=== PATIENT | male | born 1980 | race Caucasian/White ===

== ENCOUNTER → 2017-11-07 16:07 | Outpatient (REF) | payer OTHER, SELFPAY ==
[2017-11-08 15:11] LABS: Amphetamine/Metha Screen,Urine Negative ng/mL (<1000); Barbiturates Screen,Urine Negative ng/mL (<200); Benzodiazepines Screen,Urine Negative ng/mL (200); Cannabinoid Screen,Urine Positive ng/mL (<50); Cocaine Screen,Urine Negative ng/g (<300); Methadone Screen,Urine Negative ng/mL (<300); Opiate Screen,Urine Positive ng/mL (<300); Phencyclidine Screen,Urine Negative ng/mL (<25)
== END ==
LOC: LAB 16:07
PROVIDERS: Visit Provider Nurse Practitioner Family
DX: Z79.899 Other long term (current) drug therapy (principal)
CPT/HCPCS: 80305

== ENCOUNTER → 2017-12-08 15:05 | Outpatient (REF) | payer OTHER, SELFPAY ==
[2017-12-08 20:17] LABS: Amphetamine/Metha Screen,Urine Negative ng/mL (<1000); Barbiturates Screen,Urine Negative ng/mL (<200); Benzodiazepines Screen,Urine Negative ng/mL (200); Cannabinoid Screen,Urine Positive ng/mL (<50); Cocaine Screen,Urine Positive ng/g (<300); Methadone Screen,Urine Negative ng/mL (<300); Opiate Screen,Urine Positive ng/mL (<300); Phencyclidine Screen,Urine Negative ng/mL (<25)
== END ==
LOC: LAB 15:05
PROVIDERS: Visit Provider Emergency Medicine
DX: Z79.899 Other long term (current) drug therapy (principal)
CPT/HCPCS: 80305

== ENCOUNTER → 2018-01-05 16:40 | Outpatient (REF) | payer OTHER, SELFPAY ==
[2018-01-05 18:53] LABS: Amphetamine/Metha Screen,Urine Negative ng/mL (<1000); Barbiturates Screen,Urine Negative ng/mL (<200); Benzodiazepines Screen,Urine Negative ng/mL (200); Cannabinoid Screen,Urine Negative ng/mL (<50); Cocaine Screen,Urine Positive ng/g (<300); Methadone Screen,Urine Negative ng/mL (<300); Opiate Screen,Urine Positive ng/mL (<300); Phencyclidine Screen,Urine Negative ng/mL (<25)
[2018-01-13 19:16] LABS: Benzoylecgonine (GC/MS) 3355 ng/mL (Cutoff=150); Cocaine + Metabolite Positive (.)
== END ==
LOC: LAB 16:40
PROVIDERS: Visit Provider Emergency Medicine
DX: Z79.899 Other long term (current) drug therapy (principal)
CPT/HCPCS: 80305; 80353

== ENCOUNTER → 2018-01-08 16:48 | Outpatient (CLI) | payer OTHER, SELFPAY | PROVIDERS: Visit Provider Physician Assistant | DX: Z79.899 Other long term (current) drug therapy (principal) ==

== ENCOUNTER → 2018-08-31 17:03 | Outpatient (CLI) | payer OTHER, SELFPAY ==
[2018-08-31 19:58] LABS: Amphetamine/Metha Screen,Urine Negative ng/mL (<1000); Barbiturates Screen,Urine Negative ng/mL (<200); Benzodiazepines Screen,Urine Negative ng/mL (<200); Cannabinoid Screen,Urine Positive ng/mL (<50); Cocaine Screen,Urine Negative ng/mL (<300); Methadone Screen,Urine Negative ng/mL (<300); Opiate Screen,Urine Negative ng/mL (<300); Phencyclidine Screen,Urine Negative ng/mL (<25)
== END ==
PROVIDERS: PCP Nurse Practitioner Family; Visit Provider Nurse Practitioner Family
DX: Z79.899 Other long term (current) drug therapy (principal)
CPT/HCPCS: 80305

== ENCOUNTER → 2018-10-03 18:54 | Outpatient (CLI) | payer OTHER, SELFPAY ==
[2018-10-03 21:48] LABS: Amphetamine/Metha Screen,Urine Negative ng/mL (<1000); Barbiturates Screen,Urine Negative ng/mL (<200); Benzodiazepines Screen,Urine Negative ng/mL (<200); Cannabinoid Screen,Urine Positive ng/mL (<50); Cocaine Screen,Urine Negative ng/mL (<300); Methadone Screen,Urine Negative ng/mL (<300); Opiate Screen,Urine Negative ng/mL (<300); Phencyclidine Screen,Urine Negative ng/mL (<25)
== END ==
PROVIDERS: Visit Provider Nurse Practitioner Family
DX: Z79.899 Other long term (current) drug therapy (principal)
CPT/HCPCS: 80305

== ENCOUNTER → 2018-12-10 14:10 | Outpatient (POV) | payer OTHER, SELFPAY ==
[2018-12-10 14:32] VITALS: BP 145/87; PULSE 70; RESP 18; O2SAT 99
--- NOTE | 2018-12-10 15:12 | HMH.PMCON ---
Assessment and Plan (1) Degenerative disc disease Current visit: Yes Status: Chronic Qualifiers: Spinal region: lumbar Qualified Code(s): M51.36 - Other intervertebral disc degeneration, lumbar region Category: Medical (2) Back pain Current visit: No Status: Chronic Qualifiers: Back pain location: low back pain Chronicity: chronic Back pain laterality: midline Sciatica presence: with sciatica Sciatica laterality: sciatica laterality unspecified Qualified Code(s): M54.40 - Lumbago with sciatica, unspecified side; G89.29 - Other chronic pain Category: Medical Code(s): M54.9 - Dorsalgia, unspecified - Assessment and plan all Dx Assessment and Plan for all problems:: We will plan at L4-L5 lumbar epidural steroid injection. The patient is not a narcotic candidate given his ORT and previous use of illegal substances along with his age. Patient is not on anticoagulation therapy we will follow-up with the patient after his injection. Dr. Maciel has reviewed this note and agrees with this plan of care. This note was dictated using voice recognition software and may contain errors or omissions HPI - Data of Consult Consult date: 12/10/18 Requesting Physician: Gricelda Baez APRN Primary Care Provider: Gianluca Fitzpatrick MD - Consult Narrative Reason for consult: Back pain, leg pain History of present illness: Mr. Gardner is a 38 year old male who presents today to discuss his back and leg pain. Patient has a MRI from 2017 which is fairly unremarkable. However he does have some spondylosis and a very minor first-degree spondylolisthesis at L5-S1. There is no abnormal disc protrusions. Patient states he went to 1 session of physical therapy and was not told to come back so he did not complete physical therapy. Patient states he is still trying to be active. Patient does have inappropriate drug screen showing both cocaine and marijuana in the last year. Patient states he is receiving [place] from his primary care physician however this is not corroborated by his CHRISTIANE. Patient Jesus does report 800 mg of gabapentin 4 times a day. CC: Gricelda Baez APRN [facility] History I have reviewed the patient's past medical history: Yes Medical History: Reports:: Anxiety, Gastroesophageal Reflux Disease(GERD), Hypertension Other Medical History: Reports: Arthritis Other Surgeries: Yes: No Previous Surgery, Other Amputation: No Fractures: Yes - *Social History Smoking Status: Current every day smoker Tobacco Type: cigarettes # Packs/Day (cigarettes): 1 Alcohol Intake: never Alcohol Intake Frequency:: a few times a month Substance Use Type: denies use Occupational Status: employed Housing: house Household Members: spouse, children Travel in the last 8 weeks: None - Psychiatric History Expresses thoughts of harming self/others: None Suicide Plan Description: No Plan Pschychiatric History:: Reports:: Anxiety *Family Hx:: Hypertension, Heart Attack, Stroke, Diabetes, Asthma Review of Systems - Review of Systems ROS General: no recent weight change, no fever, no sleep disturbances Respiratory: no cough, no shortness of air, no recurring pulmonary infections Cardiovascular/Peripheral Vascular: No chest pain, No palpitations, no edema, no shortness of breath. Gastrointestinal: no incontinence, normal bowel movements reported Genitourinary: no incontinence Musculoskeletal: Back pain, leg pain Psychiatric: normal mood/ affect Neurological: [denies weakness in extremities], [denies balance issues] Meds Home Medications Medication Instructions Recorded Confirmed Type cyclobenzaprine 10 mg tablet 10 mg PO HS #30 tab 10/03/18 11/12/18 Rx omeprazole magnesium 20 mg 20 mg PO DAILY #30 tab 10/03/18 11/12/18 Rx tablet,delayed release gabapentin 800 mg tablet 800 mg PO QID #120 tab 11/12/18 Rx Allergies Allergy/AdvReac Type Severity Reaction Status Date / Time Pen
--- NOTE | 2018-12-10 15:15 | P.CONS_ITS ---
Assessment and Plan (1) Degenerative disc disease Current visit: Yes Status: Chronic Qualifiers: Spinal region: lumbar Qualified Code(s): M51.36 - Other intervertebral disc degeneration, lumbar region Category: Medical (2) Back pain Current visit: No Status: Chronic Qualifiers: Back pain location: low back pain Chronicity: chronic Back pain laterality: midline Sciatica presence: with sciatica Sciatica laterality: sciatica laterality unspecified Qualified Code(s): M54.40 - Lumbago with sciatica, unspecified side; G89.29 - Other chronic pain Category: Medical Code(s): M54.9 - Dorsalgia, unspecified - Assessment and plan all Dx Assessment and Plan for all problems:: We will plan at L4-L5 lumbar epidural steroid injection. The patient is not a narcotic candidate given his ORT and previous use of illegal substances along with his age. Patient is not on anticoagulation therapy we will follow-up with the patient after his injection. Dr. Maciel has reviewed this note and agrees with this plan of care. This note was dictated using voice recognition software and may contain errors or omissions HPI - Data of Consult Consult date: 12/10/18 Requesting Physician: Gricelda Baez APRN Primary Care Provider: Gianluca Fitzpatrick MD - Consult Narrative Reason for consult: Back pain, leg pain History of present illness: Mr. Gardner is a 38 year old male who presents today to discuss his back and leg pain. Patient has a MRI from 2017 which is fairly unremarkable. However he does have some spondylosis and a very minor first-degree spondylolisthesis at L5-S1. There is no abnormal disc protrusions. Patient states he went to 1 session of physical therapy and was not told to come back so he did not complete physical therapy. Patient states he is still trying to be active. Patient does have inappropriate drug screen showing both cocaine and marijuana in the last year. Patient states he is receiving [place] from his primary care physician however this is not corroborated by his CHRISTIANE. Patient Jesus does report 800 mg of gabapentin 4 times a day. CC: Gricelda Baez APRN [facility] History I have reviewed the patient's past medical history: Yes Medical History: Reports:: Anxiety, Gastroesophageal Reflux Disease(GERD), H ypertension Other Medical History: Reports: Arthritis Other Surgeries: Yes: No Previous Surgery, Other Amputation: No Fractures: Yes - *Social History Smoking Status: Current every day smoker Tobacco Type: cigarettes # Packs/Day (cigarettes): 1 Alcohol Intake: never Alcohol Intake Frequency:: a few times a month Substance Use Type: denies use Occupational Status: employed Housing: house Household Members: spouse, children Travel in the last 8 weeks: None - Psychiatric History Expresses thoughts of harming self/others: None Suicide Plan Description: No Plan Pschychiatric History:: Reports:: Anxiety *Family Hx:: Hypertension, Heart Attack, Stroke, Diabetes, Asthma Review of Systems - Review of Systems ROS General: no recent weight change, no fever, no sleep disturbances Respiratory: no cough, no shortness of air, no recurring pulmonary infections Cardiovascular/Peripheral Vascular: No chest pain, No palpitations, no edema, no shortness of breath. Gastrointestinal: no incontinence, normal bowel movements reported Genitourinary: no incontinence Musculoskeletal: Back pain, leg pain Psychiatric: normal mood/ affect Neurological: [denies weakness in extremities], [denies balance i
== END ==
PROVIDERS: PCP Emergency Medicine; Visit Provider Clinical Nurse Specialist Family Health
DX: M51.36 Other intervertebral disc degeneration, lumbar region (principal); M54.40 Lumbago with sciatica, unspecified side; G89.29 Other chronic pain
CPT/HCPCS: 99202

== ENCOUNTER → 2019-06-28 13:39 | Outpatient (CLI) | payer OTHER, SELFPAY ==
[2019-06-28 16:03] LABS: Amphetamine/Metha Screen,Urine Negative ng/mL (<1000); Barbiturates Screen,Urine Negative ng/mL (<200); Benzodiazepines Screen,Urine Negative ng/mL (<200); Cannabinoid Screen,Urine Positive ng/mL (<50); Cocaine Screen,Urine Negative ng/mL (<300); Methadone Screen,Urine Negative ng/mL (<300); Opiate Screen,Urine Negative ng/mL (<300); Phencyclidine Screen,Urine Negative ng/mL (<25)
== END ==
PROVIDERS: Visit Provider Nurse Practitioner Family
DX: N23 Unspecified renal colic (principal); Z79.899 Other long term (current) drug therapy
CPT/HCPCS: 80305; 87086

== ENCOUNTER → 2020-01-28 16:51 | Outpatient (CLI) | payer OTHER, SELFPAY | PROVIDERS: Visit Provider Nurse Practitioner Family | DX: M54.9 Dorsalgia, unspecified (principal) | CPT/HCPCS: 87086 ==

== ENCOUNTER 2020-04-30 13:06 | Emergency (ER) | payer OTHER, SELFPAY ==
[2020-04-30] VITALS (9 sets, daily range): BP systolic 120–167; BP diastolic 59–97; PULSE 44–80; RESP 18–20; TEMP 36.8–37.2; O2SAT 94–100; BMI 33.0; BMI 29.8
--- NOTE | 2020-04-30 13:01 | ECG_ITS ---
APPROVED REPORT Exam: Resting ECG HR:44 bpm ECG Measurements Heart Rate 44 AXES NH 172 P 61 QRSd 100 QRS 117 QT 442 T 65 QTc 377 <Conclusion> Marked sinus bradycardia Left posterior fascicular block Abnormal ECG Electronically signed by : Kaden Duong, 05/04/2020 12:05:25
--- NOTE | 2020-04-30 13:09 | HMH.EDGENADL ---
ED Disposition Clinical Impression: Atypical chest pain Abdominal pain Qualifiers: Abdominal location: periumbilical Qualified Code(s): R10.33 - Periumbilical pain Vomiting Qualifiers: Vomiting type: unspecified Vomiting Intractability: non-intractable Nausea presence: with nausea Qualified Code(s): R11.2 - Nausea with vomiting, unspecified Disposition: Home, Self-Care Condition on Discharge: Good Instructions: DI for Abdominal Pain-Adult, DI for Atypical Chest Pain, DI for Vomiting -- Adult Additional Instructions: Zofran as needed for vomiting. Continue omeprazole. Follow-up with your primary care provider. Additional instructions for ABDOMINAL PAIN: See your physician as soon as possible for further evaluation. Return immediately if worsening abdominal pain, vomiting, shortness of breath, fever, vomiting of blood or abdominal distention. Additional instructions for CHEST PAIN: See your physician as soon as possible for further evaluation. Return immediately if worsening chest pain, vomiting, shortness of breath, fever, coughing of blood. Prescriptions: Ondansetron [Zofran 4mg ODT] 4 mg PO TIDP PRN #[id number] tab.rapdis PRN Reason: Nausea And Vomiting Transmission Status: Received by [facility] Referrals: Provider,Referral, [Primary Care Provider] - - Critical Care Critical Care Time: No Attestation: On , the high probability of a clinically significant, sudden or life threatening deterioration of the following system(s) required my full and direct attention, intervention and personal management. The time I documented below is in addition to time spent performing reported procedures but includes the following listed in this critical care notation. Medical Decision Making - Medical Records Medical records reviewed: Yes: I reviewed the patient's medical records. - [place] Inquiry Pt receiving controlled substance: No Vital Signs: 04/30/20 13:07 04/30/20 14:07 04/30/20 14:30 Temperature 99.0 F Temperature Source Oral Pulse Rate Pulse Rate [Radial] 49 L 46 L 80 Respiratory Rate 18 19 18 Blood Pressure Blood Pressure [Right Arm] 149/84 H 120/74 144/59 H Blood Pressure Mean [Right Arm] 105 89 87 Blood Pressure Source [Right Arm] Automatic Cuff Automatic Cuff Automatic Cuff Blood Pressure Position [Right Arm] Sitting Sitting Supine 02 Sat by Pulse Oximetry 99 99 98 Oxygen Delivery Method Room Air Room Air Room Air 04/30/20 15:00 04/30/20 15:30 04/30/20 16:00 Temperature Temperature Source Pulse Rate Pulse Rate [Radial] 44 L 44 L 46 L Respiratory Rate 18 20 18 Blood Pressure Blood Pressure [Right Arm] 129/83 165/91 H 159/85 H Blood Pressure Mean [Right Arm] 98 115 109 Blood Pressure Source [Right Arm] Automatic Cuff Automatic Cuff Automatic Cuff Blood Pressure Position [Right Arm] Supine Supine Supine 02 Sat by Pulse Oximetry 99 99 98 Oxygen Delivery Method Room Air Room Air Room Air 04/30/20 16:30 04/30/20 17:00 04/30/20 17:35 Temperature 98.2 F Temperature Source Pulse Rate 80 Pulse Rate [Radial] 45 L 47 L Respiratory Rate 20 18 20 Blood Pressure 123/85 Blood Pressure [Right Arm] 167/88 H 147/83 H Blood Pressure Mean [Right Arm] 114 104 Blood Pressure Source [Right Arm] Automatic Cuff Automatic Cuff Blood Pressure Position [Right Arm] Supine Supine 02 Sat by Pulse Oximetry 100 94 L Oxygen Delivery Method Room Air - Lab Data Lab results reviewed: Yes: I reviewed the patient's lab results. Lab Results 04/30/20 13:24: WBC 11.7 H, RBC 5.31, Hgb 16.9, Hct 49.3, MCV 93.0, MCH 31.8 H, MCHC 34.1, RDW 14.2, Plt Count 168, MPV 7.9, Neut % (Auto) 77.3, Lymph % (Auto) 17.7, [place] % (Auto) 4.1, Eos % (Auto) 0.4, Baso % (Auto) 0.5, Neut # (Auto) 9.1 H, Lymph # (Auto) 2.1, [place] # (Auto) 0.5, Eos # (Auto) 0.0, Baso # (Auto) 0.1 04/30/20 13:24: Sodium 135 L, Potassium 3.6, Chloride 96 L, Carbon Dioxide 30, Anion Gap 12.6,
--- NOTE | 2020-04-30 13:14 | XR_ITS ---
PROCEDURE: XR CHEST PORTABLE CLINICAL HISTORY: CP COMPARISON: No exams were available for comparison FINDINGS: The cardiomediastinal silhouette and pulmonary vascularity are within normal limits. The lungs are clear without infiltrates, suspicious nodules, or pleural effusions. No acute bony abnormalities. IMPRESSION: No acute findings. Dictated by: Zaheer Gasca 04/30/2020 13:54 Electronically signed by Zaheer Gasca in [place] 04/30/2020 13:54
[2020-04-30 13:33] LABS: Basophils # 0.1 K/mm3 (0-0.2); Basophils % 0.5 % (0.1-2.0); Eosinophils % 0.4 % (0.1-12.0); Hematocrit 49.3 % (42.0-52.0); Hemoglobin 16.9 g/dL (14.1-18.0); Lymphocytes # 2.1 K/mm3 (0.7-4.5); Lymphocytes % 17.7 % (10-50); Mean Corpuscular HGB Conc 34.1 g/dL (31.8-35.4); Mean Corpuscular Hemoglobin 31.8 pg (27.0-31.2); Mean Platelet Volume 7.9 fl (7.4-10.4); Monocytes # 0.5 K/mm3 (0.1-1.0); Monocytes % 4.1 % (1.7-9.3); Neutrophils # 9.1 K/mm3 (1.8-7.8); Neutrophils % 77.3 % (37.0-80.0); Platelet Count 168 K/mm3 (142-424); Red Blood Count 5.31 M/mm3 (4.60-6.20); Red Cell Distribution Width 14.2 % (11.5-17.5); White Blood Count 11.7 K/mm3 (4.8-10.8)
--- NOTE | 2020-04-30 13:38 | CT_ITS ---
PROCEDURE: CT ABDOMEN PELVIS W CON CLINICAL INDICATION: abd pain COMPARISON: CT ABDOMEN PELVIS W CON from 01/26/2020 TECHNIQUE: IV Contrast: 75ML OPTIRAY 350 Oral Contrast None Axial images obtained with sagittal and coronal reformats. All CT scans at the facility use one or more dose reduction, viz: automated exposure control, ma/kV adjustment per patient size (including targeted exams where dose is matched to indication, i.e. head), or iterative reconstruction technique. FINDINGS: CT scan of the abdomen with contrast Lung bases are clear. The enhanced liver, gallbladder, kidneys, adrenal glands, spleen, and pancreas unremarkable. There is a small hiatal hernia. Aorta, small large bowel, appendix, soft tissues and bony structures are unremarkable. CT scan of the pelvis with contrast Prostate, seminal vesicles, and soft tissues are unremarkable. Grade 1 L5-S1 spondylolysis spondylolisthesis is noted. IMPRESSION: No mass lesions Dictated by: Zaheer Gasca 04/30/2020 14:13 Electronically signed by Zaheer Gasca in [facility] 04/30/2020 14:13
[2020-04-30 13:40] LABS: Chloride 96 mmol/L (98-107); Potassium 3.6 mmoL/L (3.5-5.1); Sodium 135 mmol/L (136-145)
[2020-04-30 13:42] LABS: Alanine Aminotransferase 73 U/L (12-78); Aspartate Amino Transferase 64 U/L (17-59); Blood Urea Nitrogen 9 mg/dl (9-20); Creatinine Clearance Estimated 175 mL/min (50-200); Estimated Glomerular Filt Rate 108 ml/min (>60); GFR (African American) 130 ML/MIN (>60)
[2020-04-30 13:43] LABS: Albumin Level 4.4 g/dl (3.5-5.0); Albumin/Globulin Ratio 1.4 (1.1-1.8); Alkaline Phosphatase 97 U/L (38-126); Anion Gap 12.6 mEq/L (5-15); Bilirubin,Total 0.9 mg/dl (0.2-1.3); Calcium 9.1 mg/dl (8.4-10.2); Carbon Dioxide 30 mmol/L (22.0-30.0); Ethyl Alcohol < 10 mg/dl (0-10); Globulin 3.2 g/dL (1.3-3.2); Glucose 156 mg/dl (74-100); Total Protein,Serum 7.6 g/dl (6.3-8.2)
[2020-04-30 13:50] LABS: Amylase 61 U/L (30-110); Lipase 61 U/L (23-300)
[2020-04-30 13:55] LABS: Troponin I 0.02 ng/ml (0.00-0.034)
[2020-04-30 13:57] LABS: Microscopic, Urine URINE MICROSCOPIC (MICROSCOPIC)
[2020-04-30 14:01] LABS: Appearance,Urine CLEAR (Clear); Blood, Urine Negative (Negative); Color,Urine YELLOW (Yellow); Glucose,Urine (UA) Negative (Negative); Ketones,Urine Negative (Negative); Leukocyte Esterase,Urine Negative (Negative); Nitrate,Urine Negative (Negative); Protein,Urine TRACE (Negative); Specific Gravity, Urine 1.015 (1.005-1.030)
--- NOTE | 2020-04-30 14:08 | PC.NURSE ---
PT GONE TO CT
[2020-04-30 14:20] LABS: Bacteria,Urine Trace /lpf; Squamous Epithelial Cell,Urine TNTC #/hpf (0-5)
[2020-04-30 14:21] LABS: Bilirubin,Urine Negative (Negative)
[2020-04-30 14:30] LABS: Amphetamine/Metha Screen,Urine Negative ng/ml (<1000); Barbiturates Screen,Urine Negative ng/ml (<200)
[2020-04-30 14:31] LABS: Benzodiazepines Screen,Urine Negative ng/ml (<200)
[2020-04-30 14:32] LABS: Cannabinoid Screen,Urine Positive ng/ml (<50); Cocaine Screen,Urine Negative ng/ml (<300)
[2020-04-30 14:33] LABS: Methadone Screen,Urine Negative ng/ml (<300)
[2020-04-30 14:34] LABS: Opiate Screen,Urine Negative ng/ml (<300); Phencyclidine Screen,Urine Negative ng/ml (<25)
--- NOTE | 2020-04-30 15:24 | US_ITS ---
PROCEDURE: US GALLBLADDER CLINICAL INDICATION: abdo pain, vomiting COMPARISON: No exams were available for comparison FINDINGS: Pancreas: Unremarkable/Not well seen Liver: Unremarkable. There is appropriate direction of portal blood flow. Right kidney: Unremarkable appearing. No hydronephrosis. 11.3 centimeters x 5.3 centimeters x 8.6 centimeters Gallbladder: No stones are evident. Sludge is present.. Common bile duct measures 5.1 millimeters. Gallbladder wall measures 3.1 millimeters. IMPRESSION: Gallbladder sludge Dictated by: Zaheer Gasca 04/30/2020 16:13 Electronically signed by Zaheer Gasca in [facility] 04/30/2020 16:13
--- NOTE | 2020-04-30 15:37 | PC.NURSE ---
to u/s at this time
--- NOTE | 2020-04-30 16:24 | PC.NURSE ---
LAB HERE DRAWING 2ND TROP
[2020-04-30 17:02] LABS: Troponin I 0.02 ng/ml (0.00-0.034)
== END 2020-04-30 17:36 | disposition home or self-care (01) ==
PROVIDERS: Emergency Provider Emergency Medicine
DX: R07.89 Other chest pain (principal); R10.33 Periumbilical pain; K21.9 Gastro-esophageal reflux disease without esophagitis; I10 Essential (primary) hypertension; F41.9 Anxiety disorder, unspecified; R73.9 Hyperglycemia, unspecified; F17.210 Nicotine dependence, cigarettes, uncomplicated; Z88.0 Allergy status to penicillin; Z79.899 Other long term (current) drug therapy
CPT/HCPCS: 36415; 71045; 74177; 76705; 80053; 80305; 81001; 82150; 83690; 84484; 85025; 93005; 96365; 96375; 99284; J2405; Q9967

== ENCOUNTER → 2021-06-28 20:13 | Outpatient (CLI) | payer OTHER, SELFPAY | PROVIDERS: Visit Provider Nurse Practitioner Family | DX: Z20.822 Contact with and (suspected) exposure to COVID-19 (principal) | CPT/HCPCS: U0003 ==

== ENCOUNTER 2021-07-15 13:03 | Emergency (ER) | payer OTHER, SELFPAY ==
--- NOTE | 2021-07-15 13:14 | CT_ITS ---
PROCEDURE: CT HEAD/BRAIN WO CON CLINICAL INDICATION: altered mental status COMPARISON: No exams were available for comparison TECHNIQUE: Axial images obtained. All CT scans at the facility use one or more dose reduction, viz: automated exposure control, ma/kV adjustment per patient size (including targeted exams where dose is matched to indication, i.e. head), or iterative reconstruction technique. FINDINGS: No midline shift, mass effect, intracranial hemorrhage, hydrocephalus, or extra-axial fluid collection is evident. Prominent cisterna magna is present as a normal variant. The calvarium has an unremarkable appearance. No mastoid effusion. There is mild mucosal thickening of the right maxillary sinus IMPRESSION: No acute intracranial finding Dictated by: Francisco Lowe MD 07/15/2021 13:53 Francisco Lowe MD in [facility] 07/15/2021 13:53
--- NOTE | 2021-07-15 13:14 | XR_ITS ---
PROCEDURE: XR CHEST PORTABLE CLINICAL HISTORY: mental status change COMPARISON: CR XR CHEST PORTABLE from 04/30/2020 FINDINGS: The cardiomediastinal silhouette and pulmonary vascularity are within normal limits. The lungs are clear without infiltrates, suspicious nodules, or pleural effusions. No acute bony abnormalities. IMPRESSION: No acute findings. Dictated by: Francisco Lowe MD 07/15/2021 14:09 Francisco Lowe MD in [facility] 07/15/2021 14:09
[2021-07-15 13:20] VITALS: BP 119/85; PULSE 84; RESP 16; TEMP 36.8; O2SAT 98; BMI 28.3
[2021-07-15 14:15] LABS: Basophils # 0.1 K/mm3 (0-0.2); Basophils % 1.3 % (0.1-2.0); Coronavirus 19, PCR Not Detected (NotDetected); Eosinophils # 0.2 K/mm3 (0.0-0.4); Eosinophils % 2.6 % (0.1-12.0); Hematocrit 45.8 % (42.0-52.0); Hemoglobin 15.2 g/dL (14.1-18.0); Influenza A, PCR Not Detected (NotDetected); Influenza B, PCR Not Detected (NotDetected); Lymphocytes # 1.9 K/mm3 (0.7-4.5); Lymphocytes % 24.6 % (10-50); Mean Corpuscular HGB Conc 33.1 g/dL (31.8-35.4); Mean Corpuscular Hemoglobin 31.2 pg (27.0-31.2); Mean Corpuscular Volume 94.3 fl (80-94); Mean Platelet Volume 8.2 fl (7.4-10.4); Monocytes # 0.4 K/mm3 (0.1-1.0); Monocytes % 4.7 % (1.7-9.3); Neutrophils # 5.2 K/mm3 (1.8-7.8); Neutrophils % 66.8 % (37.0-80.0); Platelet Count 140 K/mm3 (142-424); Red Blood Count 4.86 M/mm3 (4.60-6.20); Red Cell Distribution Width 14.2 % (11.5-17.5); White Blood Count 7.8 K/mm3 (4.8-10.8)
[2021-07-15 14:24] LABS: Alanine Aminotransferase 73 U/L (12-78); Albumin/Globulin Ratio 1.5 (1.1-1.8); Alkaline Phosphatase 95 U/L (38-126); Anion Gap 11.2 mEq/L (5-15); Aspartate Amino Transferase 75 U/L (17-59); Bilirubin,Total 0.4 mg/dl (0.2-1.3); Blood Urea Nitrogen 8 mg/dl (9-20); Calcium 8.8 mg/dl (8.4-10.2); Carbon Dioxide 30 mmol/L (22.0-30.0); Chloride 102 mmol/L (98-107); Creatinine Clearance Estimated 204 mL/min (50-200); Estimated Glomerular Filt Rate 125 ml/min (>60); GFR (African American) 151 ML/MIN (>60); Globulin 2.6 g/dL (1.3-3.2); Glucose 102 mg/dl (74-100); Potassium 4.2 mmoL/L (3.5-5.1); Sodium 139 mmol/L (136-145); Total Protein,Serum 6.6 g/dl (6.3-8.2)
[2021-07-15 14:25] LABS: Acetaminophen < 10 ug/ml (10-30); Ethyl Alcohol < 10 mg/dl (0-10); Salicylate < 1.0 mg/dL (2.0-20.0)
--- NOTE | 2021-07-15 14:37 | HMH.EDGENADL ---
ED Disposition Clinical Impression: Grief reaction, Hallucinations, Marijuana use Disposition: Home, Self-Care Condition on Discharge: Fair Instructions: DI for Anxiety -- Adult, Coping with Grief Additional Instructions: You have been evaluated for hallucinations, grief reaction. Please follow-up with your primary care doctor as soon as available. Return to the emergency department at once for any new or worsening symptoms. Return to the emergency department at once if you have any thoughts of hurting yourself or anyone else Referrals: Gianluca Fitzpatrick MD [Primary Care Provider] - Time of Disposition: 16:08 - Critical Care Critical Care Time: No Attestation: On 07/15/21, the high probability of a clinically significant, sudden or life threatening deterioration of the following system(s) required my full and direct attention, intervention and personal management. The time I documented below is in addition to time spent performing reported procedures but includes the following listed in this critical care notation. Medical Decision Making - Medical Records Medical records reviewed: Yes: I reviewed the patient's medical records. - [place] Inquiry Pt receiving controlled substance: No Vital Signs: 07/15/21 13:20 Temperature 98.2 F Temperature Source Oral Pulse Rate [Radial] 84 Respiratory Rate 16 Blood Pressure [Right Arm] 119/85 Blood Pressure Mean [Right Arm] 96 Blood Pressure Position [Right Arm] Sitting 02 Sat by Pulse Oximetry 98 Oxygen Delivery Method Room Air - Lab Data Lab Results 07/15/21 13:58: WBC 7.8, RBC 4.86, Hgb 15.2, Hct 45.8, MCV 94.3 H, MCH 31.2, MCHC 33.1, RDW 14.2, Plt Count 140 L, MPV 8.2, Neut % (Auto) 66.8, Lymph % (Auto) 24.6, [place] % (Auto) 4.7, Eos % (Auto) 2.6, Baso % (Auto) 1.3, Neut # (Auto) 5.2, Lymph # (Auto) 1.9, [place] # (Auto) 0.4, Eos # (Auto) 0.2, Baso # (Auto) 0.1 07/15/21 13:58: Sodium 139, Potassium 4.2, Chloride 102, Carbon Dioxide 30, Anion Gap 11.2, BUN 8 L, Creatinine 0.70, Estimated Creat Clear 204, Estimated GFR 125, Est GFR ( Amer) 151, Glucose 102 H, Calcium 8.8, Total Bilirubin 0.4, AST 75 H, ALT 73, Alkaline Phosphatase 95, Total Protein 6.6, Albumin 4.0, Globulin 2.6, Albumin/Globulin Ratio 1.5, Salicylates < 1.0 L, Acetaminophen < 10 L 07/15/21 13:58: Plasma/Serum Alcohol < 10 07/15/21 13:58: SARS-CoV-2 (PCR) Not detected, Influenza A Untype (PCR) Not detected, Influenza Type B (PCR) Not detected 07/15/21 14:25: Urine Opiates Screen Negative, Urine Methadone Screen Negative, Ur Barbituates Screen Negative, Ur Phencyclidine Scrn Negative, Ur Amphetamines Screen Negative, U Benzodiazepines Scrn Negative, Urine Cocaine Screen Negative, U Marijuana (THC) Screen Positive H Result diagrams: 07/15/21 13:58 07/15/21 13:58 Orders (Tests/Meds): ORDERS Category Date Time Status ECG Request by /Karin Stat Y 07/15/21 13:14 Ordered Medical Decision Narrative: In summary this is a 40-year-old male presenting to the emergency department with behavior changes, hallucinations. Patient clinically stable on arrival. Vital signs within normal limits, afebrile, no hypertension. Differential diagnoses are broad including grief reaction, intracranial mass, psychosis. Will obtain CBC, CMP, aspirin level, salicylate level, alcohol level, drug screen, chest x-ray, EKG, noncontrast head CT. Laboratory results are reassuring. No abnormalities of glucose or electrolytes. Salicylate level negative. Tylenol level negative. Noncontrast head CT shows no intracranial mass or bleed. On reassessment, patient says he is feeling much better. He does have odd hallucinations that are very concerning. However, he denies any thoughts of hurting himself or anyone else. He has not had outbursts or other concerning behavior. Simply odd behavior and speech. He and his would like to follow-up with his primary care doctor, Dr. Fitzpatrick. And strict return precautions. Gene
[2021-07-15 14:52] LABS: Barbiturates Screen,Urine Negative ng/ml (<200); Benzodiazepines Screen,Urine Negative ng/ml (<200)
[2021-07-15 14:53] LABS: Amphetamine/Metha Screen,Urine Negative ng/ml (<1000)
[2021-07-15 14:54] LABS: Cannabinoid Screen,Urine Positive ng/ml (<50); Cocaine Screen,Urine Negative ng/ml (<300)
[2021-07-15 14:55] LABS: Methadone Screen,Urine Negative ng/ml (<300)
[2021-07-15 14:56] LABS: Opiate Screen,Urine Negative ng/ml (<300); Phencyclidine Screen,Urine Negative ng/ml (<25)
[2021-07-15 16:12] VITALS: BP 143/74; PULSE 87; RESP 16; TEMP 36.6; O2SAT 97
== END 2021-07-15 16:14 | disposition home or self-care (01) ==
PROVIDERS: Emergency Provider Emergency Medicine; PCP Emergency Medicine
DX: F43.21 Adjustment disorder with depressed mood (principal); R44.3 Hallucinations, unspecified; F12.90 Cannabis use, unspecified, uncomplicated; K21.9 Gastro-esophageal reflux disease without esophagitis; I10 Essential (primary) hypertension; F17.210 Nicotine dependence, cigarettes, uncomplicated; Z88.0 Allergy status to penicillin
CPT/HCPCS: 70450; 71045; 80053; 80305; 80329; 85025; 99283; U0003

== ENCOUNTER → 2021-07-21 14:27 | Outpatient (CLI) | payer OTHER, SELFPAY ==
[2021-07-21 14:56] LABS: Chloride 101 mmol/L (98-107); Potassium 4.3 mmoL/L (3.5-5.1); Sodium 139 mmol/L (136-145)
[2021-07-21 14:59] LABS: Alanine Aminotransferase 71 U/L (12-78); Albumin/Globulin Ratio 1.5 (1.1-1.8); Alkaline Phosphatase 119 U/L (38-126); Anion Gap 13.3 mEq/L (5-15); Aspartate Amino Transferase 77 U/L (17-59); Bilirubin,Total 0.3 mg/dl (0.2-1.3); Blood Urea Nitrogen 6 mg/dl (9-20); Carbon Dioxide 29 mmol/L (22.0-30.0); Estimated Glomerular Filt Rate 125 ml/min (>60); GFR (African American) 151 ML/MIN (>60); Globulin 2.7 g/dL (1.3-3.2); Glucose 126 mg/dl (74-100); Total Protein,Serum 6.7 g/dl (6.3-8.2)
[2021-07-21 15:29] LABS: Basophils # 0.1 K/mm3 (0-0.2); Basophils % 0.5 % (0.1-2.0); Eosinophils # 0.2 K/mm3 (0.0-0.4); Eosinophils % 1.8 % (0.1-12.0); Hematocrit 48.3 % (42.0-52.0); Hemoglobin 15.3 g/dL (14.1-18.0); Lymphocytes # 1.8 K/mm3 (0.7-4.5); Lymphocytes % 19.1 % (10-50); Mean Corpuscular HGB Conc 31.6 g/dL (31.8-35.4); Mean Corpuscular Hemoglobin 30.1 pg (27.0-31.2); Mean Corpuscular Volume 95.1 fl (80-94); Mean Platelet Volume 9.6 fl (7.4-10.4); Monocytes # 0.5 K/mm3 (0.1-1.0); Monocytes % 4.8 % (1.7-9.3); Neutrophils % 73.7 % (37.0-80.0); Platelet Count 162 K/mm3 (142-424); Red Blood Count 5.07 M/mm3 (4.60-6.20); Red Cell Distribution Width 13.8 % (11.5-17.5); White Blood Count 9.5 K/mm3 (4.8-10.8)
[2021-07-21 15:46] LABS: Amphetamine/Metha Screen,Urine Negative ng/ml (<1000); Barbiturates Screen,Urine Negative ng/ml (<200)
[2021-07-21 15:47] LABS: Benzodiazepines Screen,Urine Negative ng/ml (<200)
[2021-07-21 15:51] LABS: Cannabinoid Screen,Urine Positive ng/ml (<50)
[2021-07-21 15:52] LABS: Cocaine Screen,Urine Negative ng/ml (<300); Methadone Screen,Urine Negative ng/ml (<300)
[2021-07-21 15:53] LABS: Opiate Screen,Urine Negative ng/ml (<300)
[2021-07-21 15:54] LABS: Phencyclidine Screen,Urine Negative ng/ml (<25)
== END ==
PROVIDERS: Visit Provider Emergency Medicine
DX: I10 Essential (primary) hypertension (principal); Z79.899 Other long term (current) drug therapy
CPT/HCPCS: 80053; 80305; 85025

== ENCOUNTER → 2022-12-06 02:22 | Outpatient (CLI) | payer OTHER, SELFPAY ==
[2022-12-06 20:33] LABS: Basophils # 0.1 K/mm3 (0-0.2); Basophils % 0.8 % (0.1-2.0); Eosinophils # 0.2 K/mm3 (0.0-0.4); Eosinophils % 3.2 % (0.1-12.0); Hematocrit 44.2 % (42.0-52.0); Hemoglobin 15.5 g/dL (14.1-18.0); Lymphocytes # 1.9 K/mm3 (0.7-4.5); Lymphocytes % 33.6 % (10-50); Mean Corpuscular Hemoglobin 33.1 pg (27.0-31.2); Mean Corpuscular Volume 94.7 fl (80-94); Mean Platelet Volume 11.1 fl (7.4-10.4); Monocytes # 0.3 K/mm3 (0.1-1.0); Neutrophils # 3.2 K/mm3 (1.8-7.8); Neutrophils % 57.4 % (37.0-80.0); Platelet Count 120 K/mm3 (142-424); Red Blood Count 4.67 M/mm3 (4.60-6.20); Red Cell Distribution Width 14.4 % (11.5-17.5); White Blood Count 5.6 K/mm3 (4.8-10.8)
[2022-12-06 20:42] LABS: Alanine Aminotransferase 127 U/L (12-78); Albumin Level 3.9 g/dl (3.5-5.0); Albumin/Globulin Ratio 1.4 (1.1-1.8); Alkaline Phosphatase 120 U/L (38-126); Aspartate Amino Transferase 123 U/L (17-59); Bilirubin,Total 0.3 mg/dl (0.2-1.3); Blood Urea Nitrogen 8 mg/dl (9-20); Calcium 8.4 mg/dl (8.4-10.2); Carbon Dioxide 31 mmol/L (22.0-30.0); Chloride 103 mmol/L (98-107); Estimated Glomerular Filt Rate 106 ml/min (>60); GFR (African American) 128 ML/MIN (>60); Globulin 2.8 g/dL (1.3-3.2); Glucose 106 mg/dl (74-100); Sodium 139 mmol/L (136-145); Total Protein,Serum 6.7 g/dl (6.3-8.2)
[2022-12-06 20:59] LABS: Free T4 (Free Thyroxine) 0.95 ng/dl (0.78-2.19)
[2022-12-06 21:13] LABS: Thyroid Stimulating Hormone 1.36 uIU/mL (0.465-4.68)
== END ==
PROVIDERS: PCP Emergency Medicine; Visit Provider Emergency Medicine
DX: R10.9 Unspecified abdominal pain (principal); Z79.899 Other long term (current) drug therapy
CPT/HCPCS: 80053; 84439; 84443; 85025

== ENCOUNTER 2023-04-04 18:20 | Emergency (ER) | payer OTHER, SELFPAY ==
[2023-04-04 18:23] VITALS: BP 117/75; PULSE 111; RESP 18; TEMP 37.3; O2SAT 95; BMI 31.2
--- NOTE | 2023-04-04 18:56 | CT_ITS ---
PROCEDURE INFORMATION: Exam: CT Right Upper Extremity Without Contrast, Forearm Exam date and time: 04/04/2023 7:07 PM Age: 42 years old Clinical indication: Swelling; Arm, lower; Right; Additional info: Wound at distal end of forearm. Swelling and redness TECHNIQUE: Imaging protocol: Computed tomography of the right upper extremity without contrast. Exam focused on the forearm. Radiation optimization: All CT scans at this facility use at least one of these dose optimization techniques: automated exposure control; mA and/or kV adjustment per patient size (includes targeted exams where dose is matched to clinical indication); or iterative reconstruction. REPORTING DATA: Count of CT and Cardiac NM exams in prior 12 months: This patient has received 0 known CTs and 0 known cardiac nuclear medicine studies in the 12 months prior to the current study. COMPARISON: No relevant prior studies available. FINDINGS: Bones/joints: Normal. No acute fracture or dislocation. Soft tissues: Extensive regions of subcutaneous edema most pronounced along the dorsal aspect of the forearm. Focal contour irregularity of the subcutaneous tissues approximately 5.9 cm proximal to the distal radius. Findings compatible with site of known wound. Other findings: Study limited secondary to lack of contrast administration. No findings within limits of the examination to suggest abscess formation. IMPRESSION: Extensive regions of subcutaneous edema most pronounced along the dorsal aspect of the forearm. Findings compatible with cellulitis. Recommend follow-up with magnetic resonance imaging without and with contrast to further evaluate for possible changes of myositis and abscess.
--- NOTE | 2023-04-04 19:06 | PC.NURSE ---
PT TO CT
[2023-04-04 19:07] LABS: Basophils # 0.1 K/mm3 (0-0.2); Basophils % 0.4 % (0.1-2.0); Eosinophils # 0.2 K/mm3 (0.0-0.4); Eosinophils % 1.2 % (0.1-12.0); Hematocrit 45.4 % (42.0-52.0); Hemoglobin 15.1 g/dL (14.1-18.0); Lymphocytes # 1.5 K/mm3 (0.7-4.5); Lymphocytes % 12.5 % (10-50); Mean Corpuscular HGB Conc 33.2 g/dL (31.8-35.4); Mean Corpuscular Hemoglobin 30.3 pg (27.0-31.2); Mean Corpuscular Volume 91.4 fl (80-94); Mean Platelet Volume 9.1 fl (7.4-10.4); Neutrophils # 9.6 K/mm3 (1.8-7.8); Platelet Count 119 K/mm3 (142-424); Potassium 3.7 mmoL/L (3.5-5.1); Red Blood Count 4.97 M/mm3 (4.60-6.20); Red Cell Distribution Width 14.1 % (11.5-17.5); Sodium 132 mmol/L (136-145); White Blood Count 12.3 K/mm3 (4.8-10.8)
[2023-04-04 19:09] LABS: Alanine Aminotransferase 74 U/L (12-78); Albumin Level 3.9 g/dl (3.5-5.0); Albumin/Globulin Ratio 1.2 (1.1-1.8); Alkaline Phosphatase 131 U/L (38-126); Aspartate Amino Transferase 81 U/L (17-59); Bilirubin,Total 1.1 mg/dl (0.2-1.3); Blood Urea Nitrogen 10 mg/dl (9-20); Carbon Dioxide 26 mmol/L (22.0-30.0); Creatinine Clearance Estimated 171 mL/min (50-200); Estimated Glomerular Filt Rate 93 ml/min (>60); GFR (African American) 112 ML/MIN (>60); Globulin 3.2 g/dL (1.3-3.2); Total Protein,Serum 7.1 g/dl (6.3-8.2)
[2023-04-04 19:10] LABS: Calcium 8.9 mg/dl (8.4-10.2); Glucose 114 mg/dl (74-100)
[2023-04-04 19:11] LABS: Lactic Acid 0.8 mmol/L (0.7-2.1)
[2023-04-04 19:15] LABS: C-Reactive Protein 68.6 mg/L (0-4)
[2023-04-04 19:22] LABS: Coronavirus 19, PCR Not Detected (NotDetected); Influenza A, PCR Not Detected (NotDetected); Influenza B, PCR Not Detected (NotDetected)
[2023-04-04 19:24] LABS: Anion Gap 13.7 mEq/L (5-15); Chloride 96 mmol/L (98-107)
[2023-04-04 19:31] LABS: Procalcitonin 0.242 ng/mL (0.0-2.0)
[2023-04-04 19:37] LABS: Erythrocyte Sedimentation Rate 14 mm/hr (0-15)
[2023-04-04 21:00] VITALS: BP 121/73; PULSE 90; RESP 18; TEMP 37; O2SAT 95
--- NOTE | 2023-04-04 22:09 | HMH.EDWNDL ---
Discharge Plan Disposition Patient Disposition: Home, Self-Care Prescriptions Prescriptions: New sulfamethoxazole-trimethoprim [Bactrim DS] 800-160 mg Tablet 1 tab PO Q12H Qty: 20 0RF cefdinir [cefdinir] 300 mg capsule 300 mg PO BID Qty: 20 0RF No Action buprenorphine-naloxone [Suboxone] 4-1 mg film 1 film SUBLINGUAL DAILY cyclobenzaprine 10 mg tablet See Rx Instructions .Route .COMPLEX Qty: 30 1RF Rx Instructions: TAKE ONE TABLET BY MOUTH AT BEDTIME gabapentin 800 mg tablet 800 mg PO QID Qty: 120 2RF omeprazole 20 mg capsule,delayed release(DR/EC) See Rx Instructions .ROUTE .COMPLEX Rx Instructions: TAKE ONE CAPSULE BY MOUTH ONCE A DAY FOR ACID REFLUX Referrals Follow up/Referrals: Gianluca Fitzpatrick MD [Primary Care Provider] - See instructions Clinical Impressions Clinical Impression: Cellulitis, SIRS (systemic inflammatory response syndrome) Instructions Patient Instructions: Cellulitis Discharge ED Provider: Nanette (ED)Gianluca Wound/Laceration HPI General Chief Complaint: Wound/Laceration Stated Complaint: Spot on R arm Possible Time Seen by Provider: 04/04/23 22:10 Mode of Arrival: Ambulatory Source of Information: Patient and Medical Record Limitations: No Limitations Description of Symptoms (Recalled from ER Triage Doc. by RN): PT WITH REDNESS, SWELLING AND OPEN WOUND TO RIGHT FOREARM. REPORTS ABOUT 4 DAYS AGO HE WAS WORKING ON A TRUCK AND HAD AN AREA THAT BUMPED UP AND I PICKED IT History of Present Illness HPI narrative: swelling and reddness rt forearm over the last 4 days - no fever or other c/o Onset (ago): day(s) Extremity Location: Right: forearm Place: home Patient tetanus UTD: Yes Associated symptoms: none Related Data Home Medications Medication Instructions Recorded Confirmed buprenorphine 4 mg-naloxone 1 mg 1 film sublingual DAILY ADDICTION 11/24/20 04/04/23 sublingual film (Suboxone) omeprazole 20 mg capsule,delayed See Rx Instructions .Route 04/04/23 04/04/23 release .COMPLEX Reflux/Acid reflux Previous Rx's Medication Instructions Recorded cyclobenzaprine 10 mg tablet See Rx Instructions .Route 03/01/23 .COMPLEX MUSCLE SPASMS #30 tabs gabapentin 800 mg tablet 800 mg PO QID NERVE PAIN #120 tabs 03/01/23 cefdinir 300 mg capsule 300 mg PO BID #20 caps 04/05/23 sulfamethoxazole 800 1 tab PO Q12H #20 tabs 04/05/23 mg-trimethoprim 160 mg tablet (Bactrim DS) Allergies Allergy/AdvReac Type Severity Reaction Status Date / Time Penicillins [PENICILLINS] Allergy Unknown Verified 03/01/23 08:40 [facility] Disclaimer: The information contained in this section may have been updated after the patient was seen, as this information can be updated by other users. Surgical History (Updated 04/04/23 @ 18:38 by Snow Alston RN) History of eye surgery Family History (Updated 04/04/23 @ 18:38 by Snow Alston RN) Other No significant family history Social History (Updated 04/04/23 @ 18:38 by Snow Alston RN) Smoking Status: Current every day smoker tobacco type: cigarettes packs per day: 1 second hand exposure: Yes alcohol intake: never substance use type: marijuana current occupational status: employed Travel in the last 8 weeks: None household members: spouse and children housing: house caffeine: Yes ROS Obtained: Yes All systems reviewed & no additional complaints except as documented Physical Exam General General appearance: alert Head Head exam: normocephalic Eye Eye exam: Present PERRL and EOMI ENT ENT exam: Present mucous membranes moist Neck Neck exam: Present trachea midline Respiratory Respiratory exam: Present normal lung sounds bilaterally; Absent respiratory distress Cardiovascular Cardiovascular exam: Present regular rate Abdominal Exam Abdominal exam: Present soft Expanded Upper Extremity Exam Right: Forearm/Wrist exam: Present full R
--- NOTE | 2023-04-04 22:24 | PC.NURSE ---
Area on Right forearm cleansed with normal saline and hibclens . Tegaderm applied.
== END 2023-04-04 22:10 | disposition home or self-care (01) ==
PROVIDERS: Emergency Provider Emergency Medicine; PCP Emergency Medicine
DX: L03.113 Cellulitis of right upper limb (principal); R65.10 Systemic inflammatory response syndrome (SIRS) of non-infectious origin without acute organ dysfunction; F17.210 Nicotine dependence, cigarettes, uncomplicated
CPT/HCPCS: 73200; 80053; 83605; 84145; 85025; 85651; 86140; 87040; 87070; 87077; 87186; 87205; 87635; 87636; 96374; 99284; 99285; C9803; J0696; U0003; U0005

== ENCOUNTER 2023-11-23 20:33 | Outpatient (CLI) | payer OTHER, SELFPAY ==
[2023-11-23 18:58] LABS: Amphetamine/Metha Screen,Urine Negative ng/ml (<1000)
[2023-11-23 18:59] LABS: Barbiturates Screen,Urine Negative ng/ml (<200); Benzodiazepines Screen,Urine Negative ng/ml (<200)
[2023-11-23 19:00] LABS: Cannabinoid Screen,Urine Positive ng/ml (<50)
[2023-11-23 19:01] LABS: Cocaine Screen,Urine Negative ng/ml (<300); Methadone Screen,Urine Negative ng/ml (<300)
[2023-11-23 19:02] LABS: Opiate Screen,Urine Negative ng/ml (<300)
[2023-11-23 19:03] LABS: Phencyclidine Screen,Urine Negative ng/ml (<25)
[2023-11-29 23:08] LABS: Gabapentin,Urine >800.0 ug/mL (.)
== END 2023-11-23 23:59 ==
LOC: LAB.DROPOF 20:33
PROVIDERS: PCP Nurse Practitioner Family; Visit Provider Nurse Practitioner Family
DX: G62.9 Polyneuropathy, unspecified (principal); Z79.899 Other long term (current) drug therapy
CPT/HCPCS: 80307

== ENCOUNTER 2023-12-04 12:59 | Outpatient (RCR) | payer OTHER, SELFPAY ==
--- NOTE | 2023-12-04 14:26 | HMH.PTOPEV ---
PT Outpatient Evaluation Rehab PT Outpatient Evaluation Start: 12/04/23 13:05 Freq: Status: Active Protocol: Document 12/04/23 13:05 SHAMA (Rec: 12/04/23 14:26 SHAMA [id number]) E-signed By Uzma Waterman, PT Outpatient Therapy Subjective History Subjective History Pt is a 43 y/o male who reports chronic LBP and intermittent right lower extremity pain. Pt reports intermittent numbness/tingling down the posterior right leg to the ankle and into his big toe. Pt denies having recent imaging of his low back but states his doctor did recommend a MRI. Pt reports he is taking Gabapentin which helps some with pain. Pt also reports recent onset of L knee pain due to trying to shift his weight off of the RLE. Pt states onset of L anteromedial knee pain 3-4 months ago that continues to worsen. Pt reports pain is aggravated by prolonged standing/walking and lifting. Pt denies b/b dysfunction. Pt denies further comorbidities to report. + Slump test on RLE New diagnosis of cancer in past 12 No months? Chief Complaint Pain Symptom Type Sharp,Numbness,Tingling, Shooting Symptoms Relieved By Prescription Meds Symptoms Aggravated By Standing,Bending/Stooping, Walking,Lifting Prior Functional Limitations None Current Functional Limitations Lifting,Sleeping,Standing, Sitting,Squatting,Walking Symptom Description Constant but Variable Level of pain today (0-10) 4 Pain scale - at its best (0-10) 3 Pain scale - at its worst (0-10) 6 Lumbopelvic Eval Posture Lumbar Spine Posture Standing Position Decreased Lordosis Palapation tenderness bilateral lumbar spinal tenderness Yes: L3-L5, S1 Lumbar/Sacral Palpation Findings Tenderness Lumbar/Sacral Palpation Overall Comment 2/4 TTP Accessory Movement L-spine Vertebrae Accessory Movements Central P/A [place] that Elicit Symptoms L2 bilateral L3 bilateral L4 bilateral L5 bilateral S1 bilateral Range of Motion Lumbar Spine Active Flexion Range of 80 Motion (degrees) Lumbar Spine Active Extension Range of 20 Motion (degrees) Left Lumbar Spine Lateral Flexion Active 20 Range of Motion (degrees) Right Lumbar Spine Lateral Flexion 20 Active Range of Motion (degrees) Manual Muscle Test Bilateral Knee Extension Strength Grade 5 Normal Knee Flexion Strength Grade 5 Normal Hip Flexion Strength Grade 5 Normal Hip Abduction Strength Grade 4 Good Hip Adduction Strength Grade 5 Normal Hip Extension Strength Grade 4 Good Gastronemius/Soleus Strength Grade 5 Normal DTR Rt Patellar 2+ Lt Patellar 2+ Rt Gastroc/Soleus 2+ Lt Gastroc/Soleus 2+ Altered Sensation Bilateral Comment equal and intact to light touch sensation bilaterally Special Tests Hip Sagar (ELIAZAR) Test Negative Left,Negative Right Sciatic Nerve Tension Test Positive Right Unilateral Straight Leg Raise (Lasegue) Positive Right Test Oswestry Index Section 1 Pain Intensity The pain comes and goes and is severe Section 2 Personal Care (Washing,Dresing) increase the pain, but I manage not to change my way of doing it Section 3 Lifting I can lift heavy weights, but it gives me extra pain Section 4 Walking I have some pain when walking but it does not increase with distance Section 5 Sitting I can sit in my favorite chair for as long as I like Section 6 Standing I have some pain on standing, but it does not increase with time Section 7 Sleeping I get pain in bed, but it does not prevent me from sleeping well Section 8 Social Life I hardly have any social life because of pain Section 9 Traveling I get extra pain while traveling, but it does not compel me to seek al Section 10 Changing Degreee of Pain My pain is gradually getting worse Score and Risk Level Oswestry Sc 22 Oswestry Risk Level Moderate Disability Outpatient Therapy Assessment Impairments Problems/Impairmments Palpation Tenderness,Impaired Range of Motion,Impaired Strength,Impaired Walking, Impaired Standing,Impaired Lifting,Impaired Squatting, Impaired Bending,Subjective C/ O Pain,Impaired Self Care/Self Management Prognosis Rehab Potential Good Clinical Impression Consistent with Diagnosis Yes Short Term Goals Number of Weeks 3 Decrease Subjective C/O Pain Yes Improve Self Care/Self Management Yes Patient to be Ind w/ HEP Yes Night Stocker Goals Number of Weeks 6 Decreased Palpation Tenderness Yes: 0-1/4 TTP of L2-L5, S1 SP Increase Range of Motion Yes: Improve lumbar AROM to WNL Increase Strength Yes: Improve BLE MMT to 4+-5/5 grossly to assist with function Improve Oswestry Score Yes: Improve score to 17 or less to improve overall QOL Decrease Subjective C/O Pain Yes: Improve pain at worst to 3-4/10 to improve overall QOL Outpatient Therapy Plan of Care Treatment Plan May Include Therapeutic Exercise Including Home Yes Exercise Program Manual Therapy Techniques Yes Neuromuscular Re-education Yes Therapeutic Activities to Return to Yes Previous Functional/Work Level ADL/Self Care Education Yes Mechanical Traction Yes Dry Needling Yes Thermal Modalities Yes Electrical Stimulation Yes Ultrasound/Phonophoresis Yes Iontophoresis Yes Massage Yes Eval/Re-Eval Yes Frequency Times per week 2 Duration Number of Weeks 4-6 Addendums This patient is a candidate for social No or vocational rehab? Patient/Guardian verbally acknowledges Yes understanding of treatment program and consents to further treatment? Patient/Guardian verbally acknowledges Yes understanding of diagnosis, prognosis and goals for treatment? Eval Complexity PT Charges 37121 - Low Complexity Shoulder/Elbow Eval Shoulder Objective Measurements Elbow Objective Measurements PHYSICIAN CERTIFICATION: I certify the specified therapy services for Doc Gardner are required, authorized, and reviewed every 30 days.
== END 2023-12-04 14:00 | disposition home or self-care (01) ==
LOC: PT 12:59
PROVIDERS: Visit Provider Nurse Practitioner Family
DX: M54.9 Dorsalgia, unspecified (principal); M54.50 Low back pain, unspecified; L03.90 Cellulitis, unspecified
CPT/HCPCS: 97163

== ENCOUNTER 2024-09-05 09:24 | Outpatient (CLI) | payer OTHER, SELFPAY ==
[2024-09-05 19:38] LABS: Basophils % 0.7 % (0.1-2.0); Eosinophils # 0.2 K/mm3 (0.0-0.4); Eosinophils % 2.5 % (0.1-12.0); Hematocrit 45.6 % (42.0-52.0); Hemoglobin 15.3 g/dL (14.1-18.0); Lymphocytes # 1.4 K/mm3 (0.7-4.5); Lymphocytes % 23.1 % (10-50); Mean Corpuscular HGB Conc 33.6 g/dL (31.8-35.4); Mean Corpuscular Hemoglobin 30.8 pg (27.0-31.2); Mean Corpuscular Volume 91.7 fl (80-94); Mean Platelet Volume 9.7 fl (7.4-10.4); Monocytes # 0.4 K/mm3 (0.1-1.0); Monocytes % 6.7 % (1.7-9.3); Neutrophils # 3.9 K/mm3 (1.8-7.8); Platelet Count 113 K/mm3 (142-424); Red Blood Count 4.97 M/mm3 (4.60-6.20); Red Cell Distribution Width 15.1 % (11.5-17.5); White Blood Count 5.9 K/mm3 (4.8-10.8)
[2024-09-05 20:25] LABS: Alanine Aminotransferase 86 U/L (12-78); Albumin Level 3.8 g/dl (3.5-5.0); Albumin/Globulin Ratio 1.4 (1.1-1.8); Alkaline Phosphatase 141 U/L (38-126); Anion Gap 10.3 mEq/L (5-15); Aspartate Amino Transferase 114 U/L (17-59); Bilirubin,Total 0.7 mg/dl (0.2-1.3); Blood Urea Nitrogen 12 mg/dl (9-20); Carbon Dioxide 27 mmol/L (22.0-30.0); Chloride 106 mmol/L (98-107); Chol/HDL Ratio 2.9 (1-3.5); Cholesterol 109 mg/dl (140-200); Estimated Glomerular Filt Rate 123 ml/min (>60); GFR (African American) 148 ML/MIN (>60); Globulin 2.8 g/dL (1.3-3.2); Glucose 83 mg/dl (74-100); HDL Cholesterol 37 mg/dl (40-60); Potassium 4.3 mmoL/L (3.5-5.1); Sodium 139 mmol/L (136-145); Total Protein,Serum 6.6 g/dl (6.3-8.2); Triglycerides 52 mg/dl (30-150); VLDL Cholesterol 10 mg/dL (0-40)
[2024-09-05 20:36] LABS: Direct LDL Cholesterol 59.95 mg/dL (100-129)
[2024-09-05 20:41] LABS: 25-OH Vitamin D, Total 40.7 ng/mL (30-100)
[2024-09-05 20:56] LABS: Prostate Specific Ag Screen 0.2 ng/ml (0.0-4.0)
== END 2024-09-05 23:59 | disposition home or self-care (01) ==
LOC: LAB.DROPOF 09-06 09:30
PROVIDERS: PCP Family Medicine; Visit Provider Family Medicine
DX: M54.40 Lumbago with sciatica, unspecified side (principal); M51.369 Other intervertebral disc degeneration, lumbar region without mention of lumbar back pain or lower extremity pain; G89.29 Other chronic pain; M25.569 Pain in unspecified knee; Z00.00 Encounter for general adult medical examination without abnormal findings; M54.9 Dorsalgia, unspecified; E66.9 Obesity, unspecified; F32.A Depression, unspecified; G62.9 Polyneuropathy, unspecified; K21.9 Gastro-esophageal reflux disease without esophagitis
CPT/HCPCS: 80050; 80053; 80061; 82306; 84443; 85025; G0103

== ENCOUNTER 2024-10-21 13:40 | Outpatient (CLI) | payer OTHER, SELFPAY ==
--- NOTE | 2024-10-21 13:43 | XR_ITS ---
FINAL REPORT CLINICAL HISTORY: left knee pain COMPARISON: None FINDINGS: LEFT KNEE: 3 views of the left knee were obtained including a patellofemoral view. There is no acute fracture or dislocation. The joint spaces are intact. There is no soft tissue abnormality. There is an osteochondroma arising from the medial aspect of the distal femur, measuring 20 x 23 mm in size. IMPRESSION: Osteochondroma arising from the medial aspect of the distal femur as described. No acute bony abnormality is identified. Reviewed, Interpreted and Dictated by Francisco Chaudhry MD Transcribed by Danyell Hammond Authenticated and . [facility]
== END 2024-10-21 23:59 | disposition home or self-care (01) ==
LOC: RAD 13:41
PROVIDERS: PCP Family Medicine; Visit Provider Physician Assistant
DX: M25.562 Pain in left knee (principal)
CPT/HCPCS: 73562

== ENCOUNTER 2024-11-04 19:06 | Outpatient (CLI) | payer OTHER, SELFPAY ==
[2024-11-04 20:41] LABS: Albumin Level 3.6 g/dl (3.5-5.0)
[2024-11-04 20:44] LABS: Alanine Aminotransferase 92 U/L (12-78); Alkaline Phosphatase 158 U/L (38-126); Aspartate Amino Transferase 122 U/L (17-59); Bilirubin,Direct 0.4 mg/dl (0.0-0.4); Bilirubin,Indirect 0.1 mg/dL (0.0-0.9); Bilirubin,Total 0.5 mg/dl (0.2-1.3); Bilirubin,Unconjugated 0.1 mg/dL (0.0-1.1); Total Protein,Serum 6.2 g/dl (6.3-8.2)
[2024-11-08 13:08] LABS: HBsAg Screen Negative (Negative); HCV Ab Reactive (Non Reactive); HCV RNA (International Units) 11500000 IU/mL (.); Hep A Ab, IGM Negative (Negative); Hep B Core Ab, IgM Negative (Negative)
== END 2024-11-04 23:59 | disposition home or self-care (01) ==
LOC: LAB 19:08
PROVIDERS: PCP Family Medicine; Visit Provider Family Medicine
DX: R74.8 Abnormal levels of other serum enzymes (principal)
CPT/HCPCS: 80074; 80076

== ENCOUNTER 2025-01-29 09:55 | Outpatient (CLI) | payer OTHER, SELFPAY ==
--- NOTE | 2025-01-29 09:56 | XR_ITS ---
FINAL REPORT CLINICAL HISTORY: back pain..rt side numbness no truama FINDINGS: AP and lateral views of the lumbar spine were obtained. There is no prior exam for comparison. There is no acute fracture. There is grade 1 anterior spondylolisthesis of L5 on S1. Alignment is otherwise normal. Vertebral body height is preserved. There is mild multilevel degenerative disease which is most pronounced at L5-S1. No acute paraspinal abnormality. IMPRESSION: Degenerative changes without acute osseous abnormality of the lumbar spine. Reviewed, Interpreted and Dictated by Lashon Dalton MD Transcribed by Shandra Garcia Authenticated and '[facility]
== END 2025-01-29 23:59 | disposition home or self-care (01) ==
LOC: RAD 09:55
PROVIDERS: PCP Family Medicine; Visit Provider Family Medicine
DX: M51.369 Other intervertebral disc degeneration, lumbar region without mention of lumbar back pain or lower extremity pain (principal); G62.9 Polyneuropathy, unspecified
CPT/HCPCS: 72100

== ENCOUNTER 2025-03-05 17:00 | Outpatient (RCR) | payer OTHER, SELFPAY ==
--- NOTE | 2025-02-10 12:07 | HMH.PTOPEV ---
PT Outpatient Evaluation Rehab PT Outpatient Evaluation Start: 02/10/25 11:23 Freq: Status: Active Protocol: Document 02/10/25 11:23 SHAMA (Rec: 02/10/25 12:07 SHAMA [id number]) E-signed By Uzma Waterman, PT Outpatient Therapy Subjective History Subjective History Pt is a 44 y/o male who reports chronic LBP for years . Pt reports gradual worsening of pain overtime. Pt reports central low back pain with intermittent radiating pain down the right leg to his toes. Pt reports pain is aggravated by bending, lifting , work activities and prolonged sitting or standing. Pt denies b/b dysfunction. Pt had a lumbar spine xray on with findings of There is no acute fracture. There is grade 1 anterior spondylolisthesis of L5 on S1. Alignment is otherwise normal . Vertebral body height is preserved. There is mild multilevel degenerative disease which is most pronounced at L5-S1. Pt reports he was prescribed Gabapentin and a muscle relaxer with only minimal short-term pain relief. Pt denies further comorbidities to report. New diagnosis of cancer in past 12 No months? Chief Complaint Pain,Paresthesia Symptom Type Sharp,Stabbing,Numbness, Tingling Symptoms Aggravated By Sitting,Standing,Bending/ Stooping,Physical Activity, Twisting,Walking,Lifting Current Functional Limitations Lifting,Standing,Sitting, Walking,Bending/Stooping Symptom Description Constant but Variable Level of pain today (0-10) 7 Pain scale - at its best (0-10) 6 Pain scale - at its worst (0-10) 8 Lumbopelvic Eval Posture Lumbar Spine Posture Standing Position Flattened,Decreased Lordosis Assistive device Assistive Devices None / NA Palapation tenderness bilateral lumbar spinal tenderness Yes: L3-L5, S1 paraspinal tenderness Yes: R lumbar PS buttock tenderness Yes: R gluteal mm Lumbar/Sacral Palpation Findings Tenderness Lumbar/Sacral Palpation Overall Comment 2/4 TTP Accessory Movement L-spine Vertebrae Accessory Movements Central P/A [place],Right P/A that Elicit Symptoms [place] L3 right L4 right L5 right S1 right Range of Motion Lumbar Spine Active Flexion Range of 70 Motion (degrees) Lumbar Spine Active Extension Range of 15 Motion (degrees) Left Lumbar Spine Lateral Flexion Active 15 Range of Motion (degrees) Right Lumbar Spine Lateral Flexion 10 Active Range of Motion (degrees) Manual Muscle Test Bilateral Knee Extension Strength Grade 5 Normal Knee Flexion Strength Grade 5 Normal Hip Flexion Strength Grade 4 Good Hip Abduction Strength Grade 4 Good Hip Adduction Strength Grade 5 Normal Hip Extension Strength Grade 4 Good Ankle Dorsiflexion Strength Grade 5 Normal DTR Rt Patellar 2+ Lt Patellar 2+ Rt Gastroc/Soleus 2+ Lt Gastroc/Soleus 2+ Altered Sensation Bilateral Comment equal and intact to light touch sensation bilaterally Special Tests Hip Sagar (ELIAZAR) Test Negative Left,Negative Right Sciatic Nerve Tension Test Negative Left,Negative Right Unilateral Straight Leg Raise (Lasegue) Negative Left,Negative Right Test Oswestry Index Section 1 Pain Intensity The pain is moderate and does not vary much Section 2 Personal Care (Washing,Dresing) my way of washing or dressing even though it causes some pain Section 3 Lifting I can lift heavy weights, but it gives me extra pain Section 4 Walking I cannot walk more than one mile wihtout increasing pain Section 5 Sitting Pain prevents me from sitting for more than one hour Section 6 Standing I have some pain on standing, but it does not increase with time Section 7 Sleeping Because of my pain, my normal night's sleep is less than 6 hours sleep Section 8 Social Life Pain has no significant effect on my social life apart from limiting Section 9 Traveling I get extra pain while traveling which compels me to seek alternate fo Section 10 Changing Degreee of Pain My pain is gradually getting worse Score and Risk Level Oswestry Sc 21 Oswestry Risk Level Moderate Disability Outpatient Therapy Assessment Impairments Problems/Impairmments Palpation Tenderness,Impaired Range of Motion,Impaired Strength,Impaired Standing, Impaired Sitting,Impaired Lifting,Impaired Squatting, Impaired Bending,Impaired Work Activities,Subjective C/O Pain,Impaired Self Care/Self Management Prognosis Rehab Potential Good Clinical Impression Consistent with Diagnosis Yes Short Term Goals Number of Weeks 3 Decrease Subjective C/O Pain Yes: Improve pain at worst to 6/10 to improve overall QOL Improve Self Care/Self Management Yes Patient to be Ind w/ HEP Yes Correction Goals Number of Weeks 6 Increase Range of Motion Yes: Improve lumbar AROM flex to at least 80 Increase Strength Yes: Improve BLE/core strength to 4+/5 grossly to assist with function Restore Ability to Lift Objects to Waist Yes: demonstrate proper Level lifting mechanics to assist with occupation Improve Tolerance to Work Activities Yes: report ability to work a full shift with pain 6/10 or less Improve Oswestry Score Yes: Improve score to 16 or less to improve overall QOL Decrease Subjective C/O Pain Yes: Improve pain at best to 4 /10 or less to improve overall QOL Outpatient Therapy Plan of Care Treatment Plan May Include Therapeutic Exercise Including Home Yes Exercise Program Manual Therapy Techniques Yes Neuromuscular Re-education Yes Therapeutic Activities to Return to Yes Previous Functional/Work Level ADL/Self Care Education Yes Mechanical Traction Yes Dry Needling Yes Thermal Modalities Yes Electrical Stimulation Yes Ultrasound/Phonophoresis Yes Iontophoresis Yes Massage Yes Eval/Re-Eval Yes Frequency Times per week 2 Duration Number of Weeks 4-6 Addendums This patient is a candidate for social No or vocational rehab? Patient/Guardian verbally acknowledges Yes understanding of treatment program and consents to further treatment? Patient/Guardian verbally acknowledges Yes understanding of diagnosis, prognosis and goals for treatment? Eval Complexity PT Charges 63114 - Low Complexity Shoulder/Elbow Eval Shoulder Objective Measurements Elbow Objective Measurements PHYSICIAN CERTIFICATION: I certify the specified therapy services for Doc Gardner are required, authorized, and reviewed every 30 days.
== END 2025-03-05 23:59 | disposition home or self-care (01) ==
LOC: PT 17:00
PROVIDERS: PCP Family Medicine; Visit Provider Family Medicine
DX: M51.362 Other intervertebral disc degeneration, lumbar region with discogenic back pain and lower extremity pain (principal); G89.29 Other chronic pain
CPT/HCPCS: 97110; 97163